=== PATIENT | female | born 1985 | race African-American/Black ===

== ENCOUNTER 2024-06-30 12:44 | Emergency (ER) | payer OTHER ==
[~2024-06-30] VITALS: Ht 167.6 cm; Wt 100.0 kg
[2024-06-30 12:52] VITALS: O2SAT 100
[2024-06-30] MEDS ORDERED: IBUP-2030 MT (17:10)
[2024-06-30 18:05] VITALS: BP 110/87; PULSE 58; RESP 20; TEMP 36.72516; O2SAT 100
== END 2024-06-30 18:06 | disposition home or self-care (01) ==
LOC: ER 12:44
DX: S09.90XA Unspecified injury of head, initial encounter (principal); Z90.49 Acquired absence of other specified parts of digestive tract; V89.2XXA Person injured in unspecified motor-vehicle accident, traffic, initial encounter; Y93.89 Activity, other specified; Y92.89 Other specified places as the place of occurrence of the external cause; Y99.8 Other external cause status
CPT/HCPCS: 99284